=== PATIENT | male | born 1975 | race Caucasian/White ===

== ENCOUNTER → 2016-12-28 | Outpatient (CLI) | payer BC ==
[~2016-12-28] MED LIST: AMLODIPINE BESYL5 MG PO; BENAZEPRIL HYDR20 MG PO; CLARITIN10 MG PO; COREG6.25 MG PO; LIPITOR20 MG PO; MEDROL DOSEPAK4 MG PO; Synthroid,Levo50 MCG PO; TRIAMTERENE & H1 CAP PO; ZYRTEC10 M3 PO
== END | disposition home or self-care (01) ==
LOC: US 09:34
DX: E03.9 Hypothyroidism, unspecified (principal); E04.1 Nontoxic single thyroid nodule

== ENCOUNTER → 2022-11-20 | Outpatient (CLI) | payer BC | END | disposition home or self-care (01) | LOC: US 07:36 | PROVIDERS: ATTEND Physician Assistant | DX: K76.0 Fatty (change of) liver, not elsewhere classified (principal) ==